=== PATIENT | male | born 1975 | race Caucasian/White ===

== ENCOUNTER 2020-09-08 23:33 | Emergency (ER) | payer SELFPAY ==
[2020-09-08 23:35] VITALS: BP 160/114; PULSE 103; RESP 15; TEMP 35.6; O2SAT 97; BMI 31.6
--- NOTE | 2020-09-08 23:47 | CT_ITS ---
STUDY: CT ABDOMEN AND PELVIS WITHOUT CONTRAST REASON FOR EXAM: Male, 45 years old. RT FLANK PAIN HX:KIDNEY STONES WITH LITHOTRIPSY RADIATION DOSAGE (If Supplied By Facility): CTDIvol = ( 15.49 ) mGy, DLP = ( 851.42 ) mGycm TECHNIQUE: Transaxial images were obtained from the dome of the diaphragm to the symphysis pubis without oral contrast, and without intravenous contrast. Sagittal and coronal images were reconstructed. Individualized dose optimization techniques were used for this CT. COMPARISON: None. FINDINGS: There is a small emphysematous bulla within the visualized lingula. The visualized portions of the heart are within normal limits. Normal liver. Normal gallbladder and extrahepatic biliary system. Normal spleen. Normal pancreas. There is a 2.3 cm low-attenuation space-occupying lesion in the left adrenal gland, which may represent a very fatty adenoma or a myelolipoma. Normal right adrenal gland. There are approximately 6 nonobstructive right renal calculi. The largest renal calculus (or possibly tight cluster of fragmented calculi) is seen in the upper pole and measures 2 cm. There is no demonstrated ureteral calculus or hydronephrosis. There are approximately 7 nonobstructive left renal calculi, largest of which is seen in the upper pole and measures 2 cm (this might actually be a tight cluster of fragmented calculi) . There is no demonstrated left ureteral calculus or hydronephrosis There is mild mural thickening of the visualized distal thoracic esophagus. Normal visualized stomach. There is a 1.2 cm diverticulum of the duodenal sweep. Otherwise normal small bowel There are multiple colonic diverticula consistent with diverticulosis. The appendix is seen on axial images 123-147 and it appears normal. There is mild atherosclerotic calcification of the abdominal aorta, without a demonstrated aneurysm. Normal inferior vena cava. Normal retroperitoneum. Assessment of the urinary bladder is limited by poor distention. There appears to be mild diffuse mural thickening of the bladder. Normal abdominal wall. Normal osseous structures. CT/Abdomen/Pelvis without Cont IMPRESSION: Multiple nonobstructive renal calculi bilaterally. No demonstrated ureteral calculi or hydronephrosis. Mural thickening of the visualized distal thoracic esophagus. Would consider follow-up upper endoscopy. Colonic diverticulosis, without evidence for acute diverticulitis. Small diverticulum of the duodenal sweep, without evidence for duodenal diverticulitis. Very fatty left adrenal adenoma versus myelolipoma. Atherosclerosis. Apparent mural thickening of the urinary bladder may be an artifact of limited distention. Cystitis is not excluded. Electronically Signed: Abhinav Maoy MD at 0:42 EST , Service support ,
--- NOTE | 2020-09-08 23:48 | ED.DCSUM_ITS ---
- ER Visit Summary Date of Service: 09/08/20 Chief Complaint: Right flank pain History of Present Illness: The patient is a 45 M history of prior kidney stones with the last one being about 2 weeks ago where he was treated at another facility. States about 2 hours prior to arrival he developed acute right flank pain. Associated nausea and vomiting. No dysuria. No fever or chills. No melena. No abdominal trauma. Feels like his prior kidney stones. Denies any gross hematuria. Physical Examination: Middle-aged male planing of pain. Vital signs initial blood pressure elevated 160/114. Afebrile. He does not look septic or toxic. H EENT exam unremarkable. Neck nontender no lymphadenopathy. Lungs clear to auscultation bilaterally. Heart regular rhythm rate about 100 no murmur. Abdomen soft. Nondistended. Normal bowel sounds no peritoneal signs. No Crum sign or McBurney's point tenderness. Back nontender no CVA tenderness. Patient moving all 4 extremities. No edema. Neurovascular intact. Neurologically is awake alert with no focal motor deficits. Test Results: BC shows a white count 13.7 normal hemoglobin 15 no bands chemistries unremarkable normal creatinine and gap. UA shows occult blood otherwise no signs of infection is 5-10 white cells but no nitrates or bacteria. CT flank shows bilateral multiple renal stones but no acute ureteral stone. No hydronephrosis nor hydroureter. No acute stone causing his pain. Emergency Department Course and Treatment: Patient with acute onset right flank pain with a history of kidney stones. Clinically this does appear to be a potential kidney stone. Versus urinary tract infection or other etiologies. Screening labs will be obtained along with a CAT scan of the flank. He will be treated with IV Dilaudid, IV Toradol, IV Zofran and IV fluids. Anthony exam is at both 00 33 and at 1:50 AM feels a lot better. Pain is resolved. He and I went over all his test results. My suspicion is he had a small stone that he passed into his bladder. Patient is comfortable being discharged home. Treatment Plan: Urine for possible passed stone. Tylenol and Motrin for pain. Follow-up as needed. Return if worse. Disposition: Discharge Impression: Acute right flank pain secondary to passed kidney stone Hx of kidney stone This note was generated with [employer] dictation software. It may contain incorrect words, spelling, and punctuation that were not noted in review of the chart prior to signing ED Disposition - Plan for ED Patient: Disposition: Home or Assisted Living Instructions: ED Kidney Stone w/ Colic Referrals: Kojo Bennett MD [STAFF PHYSICIAN] - 3-5 Days if not improving Jeancarlos Rodríguez MD [STAFF PHYSICIAN] - As Needed Additional Instructions: Plenty of fluids and rest. Strain your urine to look for past stones.
--- NOTE | 2020-09-08 23:50 | ED.DEP ---
ED Disposition - Plan for ED Patient: Disposition: Home or Assisted Living Instructions: ED Kidney Stone w/ Colic Referrals: Kojo Bennett MD [STAFF PHYSICIAN] - 3-5 Days if not improving Jeancarlos Rodríguez MD [STAFF PHYSICIAN] - As Needed Additional Instructions: Plenty of fluids and rest. Strain your urine to look for past stones.
[2020-09-08] MEDS: 0.9% Normal Saline 1,000 ML 1000 ML IV (23:52)
[2020-09-08] MEDS: Ondansetron 4 MG/2 ML Vial IV (23:53)
[2020-09-08] MEDS: HYDROmorphone 1 MG/ML Syringe IV (23:53)
[2020-09-08] MEDS: Ketorolac 30 MG/ML Syringe IV (23:53)
[2020-09-08 23:56] LABS: Bacteria 0 SEEN /hpf (None Seen); Mucous, Urine 0 SEEN /hpf (<or=2+)
[2020-09-08 23:58] LABS: Color, Urine Yellow (Yellow); Glucose, Dipstick Normal (Normal); Ketone-Dipstick Negative (Negative); Leukocyte Esterase-Dipstick 100 /ul (Negative); Nitrite-Dipstick Negative (Negative); Occult Blood-Urine 150 /ul (Negative); Protein-Dipstick 15 mg/dl (Negative); Urine Bilirubin Dipstick Negative (Negative); Urine Clarity Clear (Clear); Urine Urobilinogen Normal (Normal)
[2020-09-09 00:03] LABS: Basophil# 0.14 X10^3/uL; Eosinophil# 0.39 X10^3/uL; Eosinophils% 2.9 % (0-5); Hematocrit 42.8 % (40-54); Lymphocyte % 29.3 % (19-41); Mean Corpuscular Hgb 30.4 pg (27.0-32.0); Mean Corpuscular Volume 86.8 fL (80-94); Mean Platelet Vol. 10.2 fl (6.2-12.0); Monocyte# 1.08 X10^3/uL; Monocyte% 7.9 % (0-10); NRBC Flagged by Analyzer 0 % (0-5); Neutrophil # 7.98 X10^3/uL (2.7-7.7); Neutrophil % 58.5 % (47-70); Platelet Count 297 K/mm3 (150-450); RBC Distribution Width CV 12.8 % (11.6-14.6); RBC Distribution Width SD 40.3 fl (35.1-43.9); Red Blood Count 4.93 M/mm3 (4.6-6.2); White Blood Count 13.7 K/mm3 (4.4-11.0)
[2020-09-09 00:04] LABS: Red Blood Cells-Urine 5-10 SEEN /hpf (0-5); Squamous Epithelial Cells - UA 0-5 SEEN /hpf (0-5); White Blood Cells 5-10 SEEN /hpf (0-5)
[2020-09-09 00:17] LABS: ALB/GLOB Ratio 1.2 RATIO (0.9-2.4); AST(SGOT) 12 U/L (15-37); Alanine Aminotransfer ALT/SGPT 25 U/L (16-61); Albumin, Serum 4.2 g/dL (3.2-5.0); Alkaline Phosphatase 102 U/L (45-117); Anion Gap 4 (5-15); BUN 17 mg/dL (7-18); BUN/Creat Ratio 19.1 RATIO (10-20); Calcium,Total 9.5 mg/dL (8.5-10.1); Chloride 104 mmol/L (98-107); Creatinine, Serum 0.89 mg/dL (0.70-1.30); EST Glomerular Filtration Rate 98 mL/min (>60); Est Glom Filt Rate - Afr Amer 119 mL/min (>60); Estimated Creatinine Clearance 110.46 ml/min; Globulin 3.6 g/dL (2.2-4.2); Glucose 140 mg/dL (74-106); Potassium 3.5 mmol/L (3.5-5.1); Protein, Total 7.8 g/dL (6.4-8.2); Sodium Level 137 mmol/L (136-145)
[2020-09-09 02:00] VITALS: BP 138/87; PULSE 78; RESP 18; O2SAT 98
== END 2020-09-09 02:01 | disposition home or self-care (01) ==
PROVIDERS: Emergency Provider Emergency Medicine
DX: N20.0 Calculus of kidney (principal); Z87.442 Personal history of urinary calculi
CPT/HCPCS: 74176; 80053; 81001; 85025; 99283; J7030; A4216; J2405

== ENCOUNTER → 2023-05-16 | Outpatient (CLI) | payer MEDICAID, SELFPAY ==
[2023-05-16 12:15] LABS: Absolute Lymphocyte Count 2.45 X10^3/uL (0.83-4.51); Absolute Neutrophil Count 8.9 X10^3/uL (2.0-7.7); Basophil% 0.8 % (0-1); Eosinophil# 0.31 X10^3/uL; Eosinophils% 2.5 % (0-5); Hemoglobin 15.3 g/dL (13.0-16.5); Lymphocyte # 2.45 X10^3/ul (0.83-4.51); Lymphocyte % 19.5 % (19-41); Mean Corp Hgb Conc 33.3 g/dL (32-36); Mean Corpuscular Hgb 29.4 pg (27.0-32.0); Mean Corpuscular Volume 88.5 fL (80-94); Monocyte# 0.78 X10^3/uL; Monocyte% 6.2 % (0-10); NRBC Flagged by Analyzer 0 % (0-5); Neutrophil # 8.85 X10^3/uL (2.7-7.7); Neutrophil % 70.5 % (47-70); Platelet Count 315 K/mm3 (150-450); RBC Distribution Width SD 42.3 fl (35.1-43.9); White Blood Count 12.6 K/mm3 (4.4-11.0)
[2023-05-16 12:50] LABS: Microalbumin:Creatinine Ratio 66.7 mg/g CRE (<30 mg/g CRE)
[2023-05-16 13:00] LABS: AST(SGOT) 16 U/L (15-37); Alanine Aminotransfer ALT/SGPT 29 U/L (16-61); Albumin, Serum 3.9 g/dL (3.2-5.0); Alkaline Phosphatase 107 U/L (45-117); Anion Gap 6 (5-15); BUN 13 mg/dL (7-18); BUN/Creat Ratio 15.7 RATIO (10-20); Calcium,Total 9.2 mg/dL (8.5-10.1); Chloride 106 mmol/L (98-107); Cholesterol 227 mg/dL (200); Creatinine, Serum 0.83 mg/dL (0.70-1.30); EST Glomerular Filtration Rate 105 mL/min (>60); Est Glom Filt Rate - Afr Amer 127 mL/min (>60); Globulin 3.9 g/dL (2.2-4.2); Glucose 150 mg/dL (74-106); High Density Lipoprotein 37 mg/dL; Potassium 3.7 mmol/L (3.5-5.1); Protein, Total 7.8 g/dL (6.4-8.2); Sodium Level 137 mmol/L (136-145); Triglycerides 232 mg/dL; Very Low Density Lipoprotein 46 mg/dL (5-40)
[2023-05-17 13:07] LABS: ANTINUCLEAR ANTIBODIES DIRECT Negative (Negative)
== END | disposition home or self-care (01) ==
LOC: BIMLAB 09:39
PROVIDERS: Visit Provider Internal Medicine
DX: I10 Essential (primary) hypertension (principal); E11.9 Type 2 diabetes mellitus without complications; Z13.6 Encounter for screening for cardiovascular disorders; R68.3 Clubbing of fingers
CPT/HCPCS: 36415; 80053; 80061; 82043; 82570; 85025; 86038; 86225; 86235